=== PATIENT | female | born 2000 | race Caucasian/White ===

== ENCOUNTER 2021-03-11 19:02 | Emergency (ER) | payer BC, SELFPAY ==
--- NOTE | ~2021-03-11 | CT_ITS ---
EXAMINATION: CT abdomen pelvis w con EXAM DATE: 03/11/2021 22:15 INDICATION: Generalized abdominal pain. TECHNIQUE: Spiral CT of the abdomen and pelvis was performed following intravenous injection of 100 m L Omnipaque 350. Axial, coronal and sagittal images of the abdomen and pelvis were reviewed. The do se-length product (DLP) for this examination was 892.93 mGy-cm. The exposure was tailored according to patient size (auto mA exposure control), and iterative reconstruction (ASIR) was used as additiona l dose reduction technique. There is no prior study for comparison. FINDINGS: The liver, spleen, adrenal glands and pancreas are unremarkable. Gallbladder is unremarkab le. No biliary obstruction. Portal and splenic veins are patent. Kidneys enhance symmetrically. T here is no hydronephrosis. The uterus and ovaries are unremarkable, no adnexal mass. The bladder i s unremarkable. There is no retroperitoneal or pelvic lymphadenopathy. The appendix is normal. A few sigmoid diverticula without adjacent inflammation. The stomach and sma ll bowel are unremarkable. There is expected amount of colonic stool. No free intraperitoneal gas. The heart is normal in size. There are no pericardial or pleural effusions. The lung bases are u nremarkable. There are no osteoblastic or osteolytic lesions identified. IMPRESSION: 1. No acute intra-abdominal findings. Reviewed, dictated and finalized at location A.
[2021-03-11 19:04] VITALS: BP 142/87; PULSE 80; RESP 20; TEMP 36.4; O2SAT 99
[2021-03-11 19:17] LABS: Basophils Absolute Auto 0.1 K/mm3 (0.0-0.1); Basophils Percent Auto 0.7 % (0.2-1.2); Eosinophils Absolute Auto 0.1 K/mm3 (0-0.3); Eosinophils Percent Auto 0.9 % (0-4.4); Hematocrit 43.9 % (37.0-47.0); Hemoglobin 14.3 g/dL (12.0-15.0); Immature Granulocyte Absolute 0.02 K/mm3 (0.00-0.031); Immature Granulocyte Percent A 0.2 % (0-0.5); Lymphocytes Absolute Auto 2.18 K/mm3 (0.9-3.2); Lymphocytes Percent Auto 22.5 % (18.3-44.2); Mean Corpuscular HGB Conc 32.6 g/dl (32-36); Mean Platelet Volume 9.7 fl (7.4-10.4); Monocytes Absolute Auto 0.7 K/mm3 (0.1-0.6); Monocytes Percent Auto 7.1 % (2.6-8.5); Neutrophils Absolute Auto 6.6 K/mm3 (1.3-6.7); Neutrophils Percent Auto 68.6 % (45.5-73.1); Platelet Count Result 405 k/mm3 (150-375); Red Blood Count 4.93 M/mm3 (4.2-5.4); Red Cell Distribution Width 12.6 % (11.5-14.5); White Blood Count 9.7 K/mm3 (4.5-10.0)
[2021-03-11 19:28] LABS: Alanine Aminotransferase 65 U/L (4-35); Albumin Level 4.7 g/dL (3.5-5.1); Alkaline Phosphatase 84 U/L (38-126); Anion Gap 10 mmol/L (8-16); Aspartate Amino Transferase 38 U/L (14-36); Bilirubin,Total 0.5 mg/dL (0.2-1.3); Blood Urea Nitrogen 5 mg/dL (7-17); Calcium 9.4 mg/dL (8.4-10.2); Carbon Dioxide 25 mmol/L (22-30); Chloride 105 mmol/L (98-107); Estimated CRCL calculation 110 ml/min; Estimated Glomerular Filt Rate > 60; Glucose 108 mg/dL (65-110); Lipase 69 U/L (23-300); Potassium 3.6 mmol/L (3.4-5.0); Sodium 140 mmol/L (137-145)
[2021-03-11 19:28] LABS: Add Urine Microscopic? NO; Appearance Urine Clear (Clear); Bilirubin Urine Negative (Negative); Blood Urine Negative (Negative); Color Urine Yellow (Yellow); Glucose Urine UA Negative (Negative); Ketones Urine Negative (Negative); Leukocyte Esterase Ur Negative LEU/UL (Negative); Nitrate Urine Negative (Negative); Protein Urine Negative (Negative); Specific Grav Ur 1.013 (1.001-1.035); Urobilinogen Urine Negative mg/dL (<2.0)
[2021-03-11 21:00] VITALS: BP 144/93; PULSE 96; RESP 18; TEMP 36.4; O2SAT 99
[2021-03-11 21:23] VITALS: BP 122/81; PULSE 81; RESP 15; O2SAT 100
[2021-03-11] MEDS: MORPHINE SULFATE (*CRX) 4 MG/ML INJ IV PUSH (21:55)
[2021-03-11] MEDS: ONDANSETRON INJ 4 MG/2 ML VIAL IV PUSH (21:55)
[2021-03-11] MEDS: SODIUM CHLORIDE 0.9% IV 1,000 ML 999 ML IV CONT (21:55)
--- NOTE | 2021-03-11 21:59 | PC.NURSE ---
Pt to CT scan via stretcher at this time.
[2021-03-11 22:32] VITALS: BP 130/88; PULSE 88; RESP 14; O2SAT 97
--- NOTE | 2021-03-11 22:41 | ED.GENADULT ---
HPI - General Adult General Chief complaint: Abdominal Pain Stated complaint: abdominal pain Time Seen by Provider: 03/11/21 21:23 History of Present Illness HPI narrative: Is a 20-year-old female presents emergency department with chief complaint of abdominal pain. Patient reports that she started having cramping-like sensation throughout her entire abdomen has had some nausea and episode of vomiting and has had some loose stool. Patient states that she has had no vaginal bleeding no vaginal discharge. Patient reports that her last menstrual period was been last month reports that it was normal. Patient states that she has no prior history of this happening denies surgical history on her abdomen. Patient reports symptoms or not improved by anything or they worsened by. Related Data Allergies Allergy/AdvReac Type Severity Reaction Status Date / Time No Known Allergies Allergy Verified 03/11/21 21:25 Review of Systems Review of Systems: A 10 system review of systems was completed on the patient and is negative except for what is stated in the HPI. Nursing and ancillary documentation was reviewed. PMFSH Comments Patient denies past medical history Social history patient denies illicit drugs Exam Narrative: GENERAL: Well-appearing, well-nourished, and in no acute distress. HEAD: Normocephalic, atraumatic. EYES: PERRLA and EOMI. ENT: Nares clear, no rhinorrhea or epistaxis. Mucous membranes moist. NECK: Supple. CHEST: Clear to auscultation. No respiratory distress. HEART: Regular rate and rhythm. No murmur heard. Normal peripheral pulses. ABDOMEN: Soft, diffuse tenderness to palpation, nondistended, normal active bowel sounds. EXTREMITIES: Normal range of motion. No edema. SKIN: Warm, dry, no rash. NEURO: No focal deficits. Alert and oriented x3. PSYCH: Normal mood and affect. Course Course Emergency Course: Patient laboratory studies are within normal limits with the exception of mildly elevated liver transaminases. CT scan of the abdomen pelvis showed no evidence of inflammation in the right upper quadrant no evidence of dilatation of common bile duct and no evidence of appendicitis. Vital Signs Vital signs: Vital Signs Temperature 36.4 C 03/11/21 19:04 Pulse Rate 80 03/11/21 19:04 Respiratory Rate 20 03/11/21 19:04 Blood Pressure 142/87 H 03/11/21 19:04 Pulse Oximetry 99 03/11/21 19:04 Temperature 36.4 C L 03/11/21 21:00 Pulse Rate 88 03/11/21 22:32 Respiratory Rate 14 03/11/21 22:32 Blood Pressure 130/88 03/11/21 22:32 Pulse Oximetry 97 03/11/21 22:32 Medical Decision Making Vital Signs Vital Signs: Vital Signs Temperature 36.4 C 03/11/21 19:04 Pulse Rate 80 03/11/21 19:04 Respiratory Rate 20 03/11/21 19:04 Blood Pressure 142/87 H 03/11/21 19:04 Pulse Oximetry 99 03/11/21 19:04 Temperature 36.4 C L 03/11/21 21:00 Pulse Rate 88 03/11/21 22:32 Respiratory Rate 14 03/11/21 22:32 Blood Pressure 130/88 03/11/21 22:32 Pulse Oximetry 97 03/11/21 22:32 Lab Data Result diagrams: 03/11/21 19:12 03/11/21 19:12 Labs: Lab Results 03/11/21 03/11/21 03/11/21 Range/Units 19:12 19:12 19:17 WBC 9.7 (4.5-10.0) K/mm3 RBC 4.93 (4.2-5.4) M/mm3 Hgb 14.3 (12.0-15.0) g/dL Hct 43.9 (37.0-47.0) % MCV 89.0 (80-100) fl MCH 29.0 (26-34) pg MCHC 32.6 (32-36) g/dl RDW 12.6 (11.5-14.5) % Plt Count 405 H (150-375) k/mm3 MPV 9.7 (7.4-10.4) fl Immature Gran % (Auto) 0.2 (0-0.5) % Neut % (Auto) 68.6 (45.5-73.1) % Lymph % (Auto) 22.5 (18.3-44.2) % Graves % (Auto) 7.1 (2.6-8.5) % Eos % (Auto) 0.9 (0-4.4) % Baso % (Auto) 0.7 (0.2-1.2) % Lymph # (Auto) 2.18 (0.9-3.2) K/mm3 Graves # (Auto) 0.7 H (0.1-0.6) K/mm3 Eos # (Auto) 0.1 (0-0.3) K/mm3 Baso # (Auto) 0.1 (0.0-0.1) K/mm3 Abs Immat Gran (auto) 0.02 (0.00-0.031) K/mm3
== END 2021-03-11 23:06 | disposition home or self-care (01) ==
PROVIDERS: Emergency Medicine; Emergency Provider Emergency Medicine
DX: R10.84 Generalized abdominal pain (principal)
CPT/HCPCS: 36415; 74177; 80053; 81003; 81025; 83690; 85025; 87081; 87880; 96361; 96374; 96375; 99284; J2270; J2405; J7030; Q9967

== ENCOUNTER 2021-04-15 03:12 | Emergency (ER) | payer BC, OTHER, SELFPAY ==
--- NOTE | 2021-04-15 03:19 | PC.NURSE ---
Meds on-call activated at this time. Spoke with
[2021-04-15 03:20] VITALS: BP 153/90; PULSE 92; RESP 16; TEMP 36.7; O2SAT 97
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
--- NOTE | 2021-04-15 03:25 | PC.NURSE ---
CAMERON Narayanan RN with [facility] responded and will be en route to our facility.
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
[2021-04-15 06:14] LABS: Alanine Aminotransferase 64 U/L (4-35); Alkaline Phosphatase 93 U/L (38-126); Anion Gap 16 mmol/L (8-16); Aspartate Amino Transferase 38 U/L (14-36); Bilirubin,Total 0.3 mg/dL (0.2-1.3); Blood Urea Nitrogen 8 mg/dL (7-17); Calcium 9.5 mg/dL (8.4-10.2); Carbon Dioxide 24 mmol/L (22-30); Chloride 104 mmol/L (98-107); Estimated CRCL calculation 112 ml/min; Estimated Glomerular Filt Rate > 60; Glucose 95 mg/dL (65-110); Potassium 3.8 mmol/L (3.4-5.0); Sodium 144 mmol/L (137-145)
[2021-04-15 06:30] LABS: Beta HCG Quantitative < 2.39 mIU/ML
[2021-04-15 06:53] LABS: HIV 1/2 Ab P24 Ag Result Negative (Negative)
[2021-04-15] MEDS: DOXYCYCLINE HYCLATE 100 MG TABLET PO (06:57)
[2021-04-15] MEDS: metroNIDAZOLE 250 MG TABLET 500 MG PO (06:58)
[2021-04-15] MEDS: cefTRIAXone 1 GM VIAL 0.5 GM IM (06:58)
[2021-04-15] MEDS: HEPATITIS B VIRUS VACCINE 10 MCG/0.5 ML SYRINGE IM (06:59)
--- NOTE | 2021-04-15 07:07 | PC.NURSE ---
[facility] [phone]
[2021-04-15 07:08] VITALS: BP 142/74; PULSE 78; RESP 16; TEMP 36.6; O2SAT 100
[2021-04-15] MEDS: EMTRICITABINE-TENOFOVIR 100 MG-150 MG TABLET 2 TAB PO (07:08)
[2021-04-15] MEDS: levonorgestreL 1.5 MG TABLET PO (07:08)
== END 2021-04-15 07:20 | disposition home or self-care (01) ==
PROVIDERS: Emergency Provider Emergency Medicine
DX: T74.21XA Adult sexual abuse, confirmed, initial encounter (principal); Y07.9 Unspecified perpetrator of maltreatment and neglect; Z23 Encounter for immunization
CPT/HCPCS: 36415; 80053; 81025; 84702; 86703; 90471; 90744; 96372; 99284; A9270; G0010; G0432; J0696

== ENCOUNTER 2021-04-15 12:17 | Emergency (ER) | payer BC, OTHER, SELFPAY ==
[2021-04-15 12:20] VITALS: BP 146/94; PULSE 98; RESP 20; TEMP 36.3; O2SAT 98
--- NOTE | 2021-04-15 12:30 | PC.NURSE ---
Activated CATHY lara nurse - spoke to Meryl who will contact CAMERON BARNES
--- NOTE | 2021-04-15 12:35 | PC.NURSE ---
Call for help contacted. Belkis coming to be with pt.
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
--- NOTE | 2021-04-15 12:45 | PC.NURSE ---
jolene from call for help here for pt.
--- NOTE | 2021-04-15 13:00 | PC.NURSE ---
Pd here for pt. statement. PD name Penny Herbert [phone]
--- NOTE | 2021-04-15 14:00 | PC.NURSE ---
Favian nurse here to evaluate pt.
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
[2021-04-15 18:10] VITALS: BP 123/88; PULSE 88; RESP 14; O2SAT 97
--- NOTE | 2021-04-15 20:29 | PC.NURSE ---
Kit released to [place] [employer] Officer Fede by this RN at this time.
== END 2021-04-15 18:10 | disposition home or self-care (01) ==
PROVIDERS: Emergency Provider Emergency Medicine
DX: T74.21XA Adult sexual abuse, confirmed, initial encounter (principal); Y07.59 Other non-family member, perpetrator of maltreatment and neglect
CPT/HCPCS: 99285

== ENCOUNTER 2022-09-17 15:32 | Emergency (ER) | payer OTHER, SELFPAY ==
--- NOTE | ~2022-09-17 | XR_ITS ---
EXAMINATION: XR wrist LT min 3V DATE: 09/17/2022 15:54 INDICATION: Ulnar-sided left wrist pain after being kicked by a cow TECHNIQUE: Posteroanterior, ulnar deviation, oblique, and lateral views of the left wrist were obtain ed. COMPARISON: none FINDINGS: Alignment is normal. No fracture. Joint spaces are normal. Soft tissues are unremarkable. IMPRESSION: 1. Negative left wrist radiographs. Reviewed, dictated and finalized at location A.
--- NOTE | 2022-09-17 15:34 | ED.UPPEXIN ---
HPI - Extremity Injury (Upper) General Chief Complaint: Extremity Injury, Upper Stated Complaint: Left wrist injury Time Seen by Provider: 09/17/22 15:57 Source: patient and RN notes reviewed Mode of arrival: ambulatory Limitations: no limitations History of Present Illness HPI narrative: 22-year-old female presents concern for left wrist injury. She reports she was milking a cow with a cow kicked her and kicked her wrist into a metal curb. She reports pain in the wrist, pain with moving the fingers. She denies bruising, swelling, redness, warmth, open skin. complaint: injury to: left and wrist Related Data Home Medications Medication Instructions Recorded Confirmed bupropion HCl 150 mg 24 hr tablet, 150 mg PO DAILY 09/17/22 09/17/22 extended release escitalopram oxalate 10 mg tablet 20 mg PO DAILY 09/17/22 09/17/22 Allergies Allergy/AdvReac Type Severity Reaction Status Date / Time No Known Allergies Allergy Verified 09/17/22 15:42 Review of Systems Review of Systems: CONSTITUTIONAL: Denies malaise, chills, sweats, or fever. SKIN: Denies rash or itching, open skin, laceration, abrasion, redness, warmth, swelling. MUSCULOSKELETAL: Reports left knee pain NEUROLOGIC: Denies numbness, weakness All systems reviewed & are unremarkable except as noted in HPI and below PMFSH Past Medical History Medical History Patient denies significant medical history Social History Social History Substance use: never Comments At time of signature, agree with nursing past medical, surgical, social and family history. There is no relevant family history pertinent to the presenting complaint Exam Narrative: GENERAL: Well-appearing, well-nourished, and in no acute distress. HEAD: Normocephalic, atraumatic. EYES: PERRLA, conjunctivae clear NECK: Supple. CHEST: Speaks in full sentences. No respiratory distress. HEART: Regular rate and rhythm. Normal and equal peripheral pulses. EXTREMITIES: Left wrist, hand, digits have normal strength and sensation, grossly normal range of motion. No edema or ecchymosis. 5/5 strength with digit flexion and extension. Normal sensation with sensitivity to light touch and pain. No point tenderness. No open wounds, no skin tenting, no devitalized tissue or atrophy, no trophic changes, no obvious deformity, alignment normal, nearby joints and structures intact. Distal pulses palpable and equal bilaterally, skin warm, dry, pink. Capillary refill less than 3 seconds. SKIN: Warm, dry, no rash. NEURO: Alert and oriented x3. PSYCH: Normal mood and affect Course Course Emergency Course: Patient is aware of diagnosis, understands and agrees to treatment plan. Anticipatory guidance given. Patient agrees to follow-up as directed and is aware of reasons to seek care at the emergency department. Portions of this record may have been created with voice recognition software Level of Care: Express Care Visit Vital Signs Vital signs: Reviewed. MDM - Extremity Injury (Upper) MDM Narrative Medical decision making narrative: Patients injury and pain is consistent with musculoskeletal etiology. No signs of neurological or vascular compromise on exam. Compartments and tissues are soft without signs of compartment syndrome. Pain is felt appropriate for further evaluation on an outpatient basis. Imaging Data My impression: Images reviewed, interpreted by radiologist, agree, see report. Radiologist's impression: EXAMINATION: XR wrist LT min 3V DATE: 09/17/2022 15:54 INDICATION: Ulnar-sided left wrist pain after being kicked by a cow TECHNIQUE: Posteroanterior, ulnar deviation, oblique, and lateral views of the left wrist were obtained. COMPARISON: none FINDINGS: Alignment is normal. No fracture. Joint spaces are normal. Soft tissues are unremarkable. IMPRESSION: 1. Negative left
[2022-09-17 15:41] VITALS: BP 137/70; PULSE 76; RESP 18; TEMP 36.6; O2SAT 98
== END 2022-09-17 16:07 | disposition home or self-care (01) ==
PROVIDERS: Emergency Provider Nurse Practitioner
DX: S63.502A Unspecified sprain of left wrist, initial encounter (principal); S66.912A Strain of unspecified muscle, fascia and tendon at wrist and hand level, left hand, initial encounter; W55.22XA Struck by cow, initial encounter; F41.9 Anxiety disorder, unspecified; F32.A Depression, unspecified
CPT/HCPCS: 73110; 99213; G0463

== ENCOUNTER 2023-07-28 22:26 | Emergency (ER) | payer BC, SELFPAY ==
--- NOTE | ~2023-07-28 | CT_ITS ---
EXAMINATION: CT brain wo con DATE: 07/28/2023 23:19 INDICATION: headache, change in pattern, possible seizure . TECHNIQUE: Computed tomography (CT) of the head was performed without intravenous contrast. The mA wa s adjusted according to patient size. Iterative reconstruction technique was employed. The dose-lengt h product was 681.00 mGy-cm. COMPARISON: None. FINDINGS: No acute intracranial hemorrhage or extra-axial fluid collection. No hydrocephalus, mass, or herniation. No acute ischemic infarct. Unremarkable dural venous sinus attenuation. No acute osseous abnormality. Mild right sphenoid mucosal thickening, the remaining aerated spaces are clear. IMPRESSION: No acute intracranial process. Reviewed, dictated and finalized at location K.
[2023-07-28 22:28] VITALS: BP 126/62; PULSE 90; RESP 16; TEMP 36.8; O2SAT 99
[2023-07-28 22:41] VITALS: O2SAT 97; O2SAT 99
--- NOTE | 2023-07-28 22:42 | ED.GENADULT ---
HPI - General Adult General Chief complaint: Seizure Stated complaint: MULTIPLE SZ's, KRISHNAMURTHY, NAUSEA Time Seen by Provider: 07/28/23 22:33 Source: patient Mode of arrival: EMS Limitations: no limitations History of Present Illness HPI narrative: this is a 23-year-old female with history of anxiety depression who presents to the ED via EMS with chief complaint of multiple witnessed seizure like activity episodes this evening. Patient reports that she was having headache and some nausea earlier this afternoon/evening. she states that tonight she called remains to her because she was feeling very unwell and thought that she might have a seizure. Patient states that she was diagnosed with pseudoseizures in 2018 and has not had a seizure like episodes since 2020. Reports that she has been under a lot of increased stress with her job lately. Today she states that she some tingling to the scalp following the headache and is unsure of what happened after that. Denies any known head trauma. Denies numbness, weakness, abdominal pain, cough, chest pain, shortness of breath. denies urinary incontinence or fecal incontinence. Patient's roommate is here and supplementing history. She reports that the patient had a total of 4 seizure-like activity episodes. States that they lasted in between 10-15 seconds every time. She reports that patient was able to come back to her baseline mental status in between the episodes. States that the episodes consist of straightening of the lower extremities and shaking of the upper half of her body. Received 4mg Zofran EN route per EMS Related Data Home Medications Medication Instructions Recorded Confirmed bupropion HCl 150 mg 24 hr tablet, 150 mg PO DAILY 09/17/22 09/17/22 extended release escitalopram oxalate 10 mg tablet 20 mg PO DAILY 09/17/22 09/17/22 Allergies Allergy/AdvReac Type Severity Reaction Status Date / Time No Known Allergies Allergy Verified 07/28/23 23:32 Review of Systems Review of Systems: All systems as dictated in HPI PMFSH Past Medical History Medical History Patient denies significant medical history Social History Social History Substance use: never Exam Narrative: GENERAL: Well-appearing, well-nourished, and in no acute distress. speaks in whispered tones and does not open eyes during exam. HEAD: Normocephalic, atraumatic. EYES: PERRLA and EOMI. No photophobia ENT: Nares clear, no rhinorrhea or epistaxis. Mucous membranes moist. Oropharynx without tonsillar hypertrophy exudate or other lesions. no tongue laceration . NECK: Supple. No adenopathy or masses. CHEST: No respiratory distress. Clear to auscultation. No wheezes rales or rhonchi. HEART: Regular rate and rhythm. No murmur heard. Normal peripheral pulses. ABDOMEN: Soft, nontender, nondistended, normal active bowel sounds. MSK: Normal range of motion. No edema. SKIN: Warm, dry, no rash. NEURO: Alert and oriented x3. No focal deficits. Cranial nerves 2-12 intact. PSYCH: Normal mood and affect. Course Vital Signs Vital signs: Vital Signs Temperature 98.3 F 07/28/23 22:28 Pulse Rate 90 07/28/23 22:28 Respiratory Rate 16 07/28/23 22:28 Blood Pressure 126/62 07/28/23 22:28 Pulse Oximetry 99 07/28/23 22:28 Oxygen Delivery Room Air 07/28/23 22:28 Temperature 98.3 F 07/28/23 22:28 Pulse Rate 78 07/29/23 00:35 Respiratory Rate 15 07/29/23 00:35 Blood Pressure 118/82 07/29/23 00:35 Pulse Oximetry 100 07/29/23 00:35 Oxygen Delivery Room Air 07/28/23 22:41 Medical Decision Making MDM Narrative Medical decision making narrative: This is a 23-year-old female who presents to the ED for possible seizure-like activity. Patient tells me she has a history pseudo-seizure diagnosis and is not on any kind of epileptic prescriptions. V
--- NOTE | 2023-07-28 22:43 | ECG_ITS ---
Measurements Intervals [place] Rate: 84 P: 42 TN: 117 QRS: 36 QRSD: 88 T: 40 QT: 357 QTc: 422 Interpretive Statements SINUS RHYTHM WITH SINUS ARRHYTHMIA WITH SHORT TN INTERVAL RSR' IN V1 OR V2, PROBABLY NORMAL VARIANT BORDERLINE ST ABNORMALITY- ANTERIOR LEADS BORDERLINE ECG NO PREVIOUS ECG AVAILABLE FOR COMPARISON Electronically Signed On 07-29-2023 6:31:21 CDT by Doroteo Packer D.O.
[2023-07-28 22:55] LABS: Basophils Absolute Auto 0.1 K/mm3 (0.0-0.1); Basophils Percent Auto 0.4 % (0.2-1.2); Eosinophils Absolute Auto 0.1 K/mm3 (0-0.3); Hematocrit 38.1 % (37.0-47.0); Hemoglobin 12.5 g/dL (12.0-15.0); Immature Granulocyte Absolute 0.04 K/mm3 (0.00-0.031); Immature Granulocyte Percent A 0.3 % (0-0.5); Lymphocytes Absolute Auto 3.09 K/mm3 (0.9-3.2); Lymphocytes Percent Auto 24.7 % (18.3-44.2); Mean Corpuscular HGB Conc 32.8 g/dl (32-36); Mean Corpuscular Volume 85.2 fl (80-100); Mean Platelet Volume 9.8 fl (7.4-10.4); Monocytes Percent Auto 7.7 % (2.6-8.5); Neutrophils Absolute Auto 8.3 K/mm3 (1.3-6.7); Neutrophils Percent Auto 65.9 % (45.5-73.1); Platelet Count Result 343 k/mm3 (150-375); Red Blood Count 4.47 M/mm3 (4.2-5.4); Red Cell Distribution Width 13.5 % (11.5-14.5); White Blood Count 12.5 K/mm3 (4.5-10.0)
[2023-07-28 23:01] VITALS: BP 102/91; PULSE 104; RESP 19; O2SAT 100
[2023-07-28 23:06] LABS: Alanine Aminotransferase 35 U/L (6-35); Albumin Level 4.2 g/dL (3.5-5.1); Alkaline Phosphatase 76 U/L (38-126); Anion Gap 8 mmol/L (4-12); Aspartate Amino Transferase 28 U/L (14-36); Bilirubin,Total 0.3 mg/dL (0.2-1.3); Blood Urea Nitrogen 12 mg/dL (7-17); Carbon Dioxide 22 mmol/L (22-30); Chloride 106 mmol/L (98-107); Estimated CRCL calculation 109 ml/min; Estimated Glomerular Filt Rate > 60; Glucose 96 mg/dL (65-110); Potassium 3.6 mmol/L (3.4-5.0); Sodium 136 mmol/L (137-145)
[2023-07-28] MEDS: SODIUM CHLORIDE 0.9% IV 1,000 ML 999 ML IV CONT (23:19)
[2023-07-28] MEDS: KETOROLAC 30 MG/ML VIAL (*BKC) IV PUSH (23:19)
[2023-07-28 23:22] VITALS: PULSE 88
[2023-07-28 23:23] LABS: Bacteria Urine None Seen /hpf; Non Pathogenic Casts 0-2; RBC Urine 0-2 /hpf (0-2); Squamous Epithelial Cell Urine None Seen /hpf (Few); WBC Urine 0-5 /hpf (0-3)
[2023-07-28 23:32] LABS: Lactic Acid Reflex 0.8 mmol/L (0.7-2.0)
[2023-07-28 23:38] LABS: Appearance Urine Clear (Clear); Bilirubin Urine Negative (Negative); Blood Urine Trace-Lysed (Negative); Color Urine Yellow (Yellow); Glucose Urine UA Negative (Negative); Ketones Urine Trace mg/dL (Negative); Leukocyte Esterase Ur Trace LEU/UL (Negative); Nitrate Urine Negative (Negative); Protein Urine Negative (Negative); Urobilinogen Urine 0.2 mg/dL (<2.0); pH Urine 6.5 (5.0-9.0)
[2023-07-28 23:40] LABS: Add Urine Microscopic? YES
[2023-07-29 00:35] VITALS: BP 118/82; PULSE 78; RESP 15; O2SAT 100
== END 2023-07-29 00:35 | disposition home or self-care (01) ==
PROVIDERS: Emergency Provider Physician Assistant
DX: R56.9 Unspecified convulsions (principal); F41.9 Anxiety disorder, unspecified; F32.A Depression, unspecified
CPT/HCPCS: 36415; 70450; 80053; 81001; 81025; 83605; 85025; 93005; 96361; 96374; 99284; J1885; J7030